=== PATIENT | male | born 1960 | race Caucasian/White ===

== ENCOUNTER 2022-12-27 08:48 | Day surgery (SDC) | payer OTHER ==
[2022-12-20 14:09] VITALS: BMI 22.9
[2022-12-27 09:14] VITALS: RESP 18
[2022-12-27 11:36] VITALS: PULSE 61; TEMP 97.8
[2022-12-27 11:37] VITALS: BP 93/62
== END 2022-12-27 12:00 | disposition home or self-care (01) ==
LOC: FASU-ENDO 08:48
PROVIDERS: ATTEND Internal Medicine Gastroenterology
PROC: 0DJD8ZZ Inspection of Lower Intestinal Tract, Via Natural or Artificial Opening Endoscopic (ICD-10-PCS; principal; 2022-12-27 10:51)
DX: Z12.11 Encounter for screening for malignant neoplasm of colon (principal); K64.1 Second degree hemorrhoids